=== PATIENT | female | born 1960 ===

== ENCOUNTER 2019-02-25 00:28 | Inpatient (IN) | payer OTHER ==
--- NOTE | 2019-02-24 12:28 | LEVENE H&P ---
DATE OF ADMISSION: February 25, 2019 IDENTIFICATION/CHIEF COMPLAINT The patient is a 58-year-old woman with a chief complaint of right knee pain. HISTORY OF PRESENT ILLNESS The patient has a long-standing history of knee arthritis, progressively painful and debilitating, refractory to conservative care. Surgery is indicated to relieve symptoms after failure of nonoperative measures. PAST MEDICAL HISTORY Hypertension, borderline diet controlled. PAST SURGICAL HISTORY 1. Cholecystectomy. 2. Hernia repair. ALLERGIES Erythromycin and Sudafed. CURRENT MEDICATIONS 1. Diovan/hydrochlorothiazide 1 p.o. q. day. 2. Effexor 1 p.o. q. day. 3. Trazodone 1 p.o. q. nightly. FAMILY HISTORY Notable for a father with heart attack. SOCIAL HISTORY Negative for tobacco and alcohol use. REVIEW OF SYSTEMS Negative. PHYSICAL EXAMINATION GENERAL: This is a healthy female. HEENT: Normocephalic, atraumatic. Extraocular muscles intact. NECK: Supple, non-tender. LUNGS: Clear to auscultation bilaterally. HEART: Regular rate and rhythm. ABDOMEN: Benign. ORTHOPEDIC EXAMINATION The right knee has an effusion present, crepitus is noted. She is stiff at end- range. Flexion and extension is good. Gross stability is good. End-range and extensor function is intact. Calf is nontender. Neurovascular function intact. RADIOGRAPHS Demonstrate end-stage knee arthritis. ASSESSMENT Right knee end-stage degenerative joint disease progressively painful and debilitating, refractory to conservative measures. PLAN The patient and I discussed the options again, including ongoing conservative management, which is safe and reasonable versus the option of knee replacement. She would like to go ahead and proceed with total knee arthroplasty. The nature of the procedure, the risks, benefits, the anticipated rehabilitative course were reviewed. Risks include but are not limited to , major medical or anesthetic complication, infection, neurovascular injury, blood transfusion, stiffness, scarring, fracture, tendon rupture, instability, implant loosening, migration or failure, persistent or recurrent pain or symptoms, need for additional surgery and other unforeseen. She understands and wishes to proceed. A signed permit is placed in the chart. No guarantees are given or implied. [facility]ITAL[facility]
[2019-02-24 15:27] LABS: INR 0.98
[~2019-02-25] VITALS: Ht 170.2 cm; Wt 76.0 kg
[2019-02-25] VITALS (8 sets, daily range): BP systolic 98–129; BP diastolic 61–84
[~2019-02-25 00:28] MED LIST: TRAZ50TA52 PO; VALS1TAB4 PO; VENL150C3 PO
[2019-02-25] MEDS: NORMOSOL R SOLN(*) 1000 ML BAG 1,000 ML IV PRN ×2 (07:08→10:08)
[2019-02-25] MEDS: LIDOCAINE/SOD BICARB 8.4% SYR ID ONE ×2 (07:09→07:40)
[2019-02-25] MEDS ORDERED: fentaNYL CITR 100 MCG/2 ML AMP ONE (07:49)
[2019-02-25] MEDS ORDERED: DEXAMETHASONE SOD 4 MG/ML VIAL ONE (07:49)
[2019-02-25] MEDS ORDERED: ONDANSETRON 4 MG/2 ML VIAL ONE (07:49)
[2019-02-25] MEDS ORDERED: PROPOFOL EMUL(*) 10MG/ML 20 ML 20 ML ONE (07:49)
[2019-02-25] MEDS ORDERED: LIDOCAINE MPF 1% 5 ML VIAL ONE (07:49)
[2019-02-25] MEDS ORDERED: KETAMINE HCL-NS 50 MG/5 ML SYR ONE (07:51)
[2019-02-25] MEDS ORDERED: PREGABALIN 150 MG CAPSULE PO ONE (08:45)
[2019-02-25] MEDS ORDERED: ACETAMINOPHEN 500 MG TAB PO ONE (08:45)
[2019-02-25] MEDS ORDERED: FAMOTIDINE 20 MG TAB PO ONE (08:45)
[2019-02-25] MEDS ORDERED: ROPIVACAINE/EPI/CLONIDINE/KET 50 ML SYRINGE INJ ONE (08:45)
[2019-02-25] MEDS ORDERED: TRANEXAMIC AC 1000 MG/10ML SDV 1,000 MG in DEXTROSE 5% 50 ML BAG 50 ML IV ONE (08:45)
[2019-02-25] MEDS ORDERED: CELECOXIB 200 MG CAP PO ONE (08:45)
[2019-02-25] MEDS ORDERED: MIDAZOLAM 2 MG/2 ML VIAL IVP PRN (08:45)
[2019-02-25] MEDS ORDERED: ceFAZolin(*) 2GM/D5W 50ML 50 ML IVPB ONE (08:45)
[2019-02-25] MEDS ORDERED: VANCOMYCIN 1 GM VIAL ONE (09:50)
[2019-02-25] MEDS ORDERED: ePHEDrine 25 MG/5 ML DISP.SYR IVP ONE ×2 (10:33→13:25)
[2019-02-25] MEDS ORDERED: NS 0.9% IRRIGATION 1000ML PLCT IR ONE (10:56)
[2019-02-25] MEDS ORDERED: LACTATED RINGER 3000 ML BAG IR ONE (10:56)
[2019-02-25] MEDS ORDERED: WATER STERILE FOR IRRIG 1000ML IR ONE (10:57)
--- NOTE | 2019-02-25 12:46 | OPERATIVE REPORT 1 ---
EVENT DATE: February 25, 2019 SURGEON: Troy Sultana MD ANESTHESIOLOGIST: Kamran Melendrez MD ANESTHESIA: General plus spinal. ORDERLIES TEACHER: DEMARIO Lei, PUBLIC RELATIONS COORDINATOR PREOPERATIVE DIAGNOSIS Right knee degenerative joint disease. POSTOPERATIVE DIAGNOSIS Right knee degenerative joint disease. PROCEDURE PERFORMED Right total knee arthroplasty. ESTIMATED BLOOD LOSS Minimal. DRAINS None. SPECIMENS None. COMPLICATIONS None apparent. TOURNIQUET TIME 46 minutes. IMPLANTS USED [email or web address] system with a 4 right PS femur, a 5 standard tibial baseplate, a 33 mm universal symmetric all polyethylene patella button and 11 mm PS tibial tray, polyethylene X3. INDICATIONS Svitlana is a 51-year-old woman with intractable pain and disability related to end-stage knee arthritis. Surgery is indicated to relieve symptoms after failure of nonoperative measures. DESCRIPTION OF PROCEDURE The patient was taken to the operating room and placed supine on the operating table. Spinal block was administered by the anesthesiologist. General anesthesia was induced. Antibiotics and TXA were administered IV. The right lower extremity was prepped and draped in the usual sterile fashion for knee arthroplasty. The limb was exsanguinated with an Esmarch bandage. The tourniquet was inflated to 275 mmHg. A midline longitudinal incision was made and carried down through the skin and subcutaneous tissue to the extensor mechanism. A full-thickness flap was developed far enough medially to allow medial parapatellar arthrotomy to be performed. The patella was everted. The knee was brought into a flexed position. The fat pad, anterior horns of the menisci and cruciate ligaments were debrided. Subperiosteal capsular release was performed circumferentially around the upper tibial plateau. Step-drill was used to enter the distal femur. A 10-inch long alignment guide was used to engage the isthmus. Cut was set for 6 degrees valgus relative to anatomic axis. A 10 mm resection block was applied and pinned. Cut was made with an oscillating saw. The AP sizing guide was applied to the distal femoral cut and positioned for 3 degrees of external rotation relative to the posterior condyles. The size 4 was optimal without risk of notching. The four-in-one cutting block was applied. Anterior, posterior, posterior chamfer and anterior chamfer cuts were made respectively. A PS block was applied and centered mediolateral and the bone was resected from the box. The trial femur has nice tqib-zx-rpug fit. Attention was turned to tibial preparation. The extramedullary guide was applied and positioned for varus, valgus, posterior slope and rotation. This was set to resect 2 mm from the relatively deficient lateral tibial plateau. It was dropped down another couple of millimeters to assure an adequate cut. The block was pinned, extramedullary alignment check was made and the cut was made with an oscillating saw. After osteophyte removal, no additional soft tissue release was required to achieve balanced and symmetric gaps. Size 5 tibial baseplate provides optimal bony coverage without overhang. This was selected and inserted along with trial liner and trial in the femur. The knee was brought into extension. Patella was taken from starting thickness of 23 mm through residual of 14 with patellar clamp and oscillating saw. The 33 provides optimal bony coverage without soft tissue overhang. Lug holes were drilled. The patella tracts nicely with a no-touch technique. Final tibial preparation consisted of assuring appropriate rotational and translational position of the component. The box was reamed and the fin was punched. Surfaces were lavaged. A mix of polymethylmethacrylate was made and the components were cemented in a single stage. Once the cement was fully polymerized, the tourniquet was deflated and hemostasis was assured. All loose debris was washed from the wound. The 11 PS tibial tray trial fills up the gap ideally, allowing the knee to drop to full extension without hyperextension, providing optimal stability and soft tissue tension. The tray was lavaged and dried and the actual liner was locked into baseplate. Joints was reduced. Arthrotomy was closed in flexion with #2 Ethibond, subcutaneous with 3-0 Vicryl and the skin with ZipLine closure. Xeroform was applied followed by a dry, sterile dressing and a compression wrap. The patient was awakened from anesthesia and taken to the recovery room in stable condition, having tolerated the procedure well. Plan is for standard TKA rehab protocol. [facility]
[2019-02-25] MEDS ORDERED: diphenhydrAMINE 50 MG/ML VIAL IVP PRN (13:05)
[2019-02-25] MEDS ORDERED: MAGNESIUM HYDROXIDE* 30ML UDCP PO PRN (13:05)
[2019-02-25] MEDS ORDERED: DIAZEPAM 5 MG TAB PO PRN (13:05)
[2019-02-25] MEDS ORDERED: ACETAMINOPHEN 325 MG TAB PO PRN (13:05)
[2019-02-25] MEDS ORDERED: diphenhydrAMINE 25 MG CAP PO PRN (13:05)
[2019-02-25] MEDS ORDERED: FLUSH 10 ML SYR IVP PRN (13:05)
[2019-02-25] MEDS ORDERED: ZOLPIDEM TARTRATE 5 MG TAB PO PRN (13:05)
[2019-02-25] MEDS ORDERED: BISACODYL 10 MG SUPP PR PRN (13:05)
[2019-02-25] MEDS ORDERED: PROMETHAZINE 25 MG/ML 1 ML AMP IVP PRN (13:05)
[2019-02-25] MEDS ORDERED: NORMOSOL R SOLN(*) 1000 ML BAG 1,000 ML IV PRN (13:05)
[2019-02-25] MEDS ORDERED: BENZOCAINE/MENTHOL 1 EACH LOZG PO PRN (13:05)
[2019-02-25] MEDS ORDERED: GLYCOPYRROLATE 0.2MG/ML 1 ML INJ ONE (13:31)
--- NOTE | 2019-02-25 14:24 | Hospitalist Consultation ---
History of Present Illness Requesting Physician Dr. Sultana Reason for Consult Medical Management Chief Complaint s/p right knee replacement History of Present Illness She was admitted s/p right knee replacement. It is reported the surgery went well and without complication. History Problems: (1) Hypertension Status: Chronic (2) Depression Status: Chronic (3) Hx pulmonary embolism Status: Chronic Home Meds Reported Medications Trazodone Hcl (TRAZODONE HCL) 50 Mg Tablet, 50 MG PO QHS 02/18/19 Valsartan/Hydrochlorothiazide (VALSARTAN-HCTZ 160-12.5 MG TAB) 1 Each Tablet, 1 EACH PO DAILY 02/18/19 Venlafaxine Hcl (VENLAFAXINE HCL ER) 150 Mg Cap.er.24h, 150 MG PO QDAY 02/18/19 Allergies: Coded Allergies: erythromycin base (Verified Allergy, Intermediate, VOMITING, 02/18/19) pseudoephedrine (Verified Allergy, Unknown, INCREASED BLOOD PRESSURE, 02/18/19) Patient History: FH: [facility] (my[facility] infarction) FATHER, Hx Smoking: No Smoking Status: Never Smoker Caffeine Intake: Soda Caffeine/Cups Per Day: 2 SODAS DAILY Hx Alcohol Use: Yes Hx Substance Use Disorder: No Social Drug Use: Never History of IV Drug Use: No Review of Systems All Systems Reviewed/Normal: Yes, Except as Noted Exam Vital Signs Vital Signs Date Time Temp Pulse Resp B/P (MAP) Pulse Ox O2 Delivery O2 Flow Rate FiO2 02/25/19 13:35 93 Nasal Cannula 2.0 02/25/19 13:18 97.9 108 12 123/82 (96) General Appearance: Alert, Awake, No Acute Distress, Afebrile Neuro: No Gross deficits Cardiovascular: Regular Rate and Rhythm Respiratory: No Respiratory Distress, Clear to Auscultation GI: Abd Soft and Non-Tender Psych: Alert & Oriented X3, Appropriate Mood & Affect Assessment and Plan Problems: (1) S/P knee replacement Status: Acute Assessment & Plan: Followed by Dr. Sultana. She will be placed on Xarelto for DVT prophylaxis secondary to history of PE. (2) Hypertension Status: Chronic Assessment & Plan: Continue chronic Valsartan/ HCTZ with hold parameters. (3) Depression Status: Chronic Assessment & Plan: Continue chronic Venlafaxine. (4) Hx pulmonary embolism Status: Chronic Assessment & Plan: After fall and starting control in . Venous Thromboembolism Antithrombotics Is Pt On Any Antithrombotics?: No DILIP MIGUEL [employer] Feb 25, 2019 14:24
--- NOTE | 2019-02-25 14:51 | NUR ---
This Physical Therapist or Nitro Worker was present for the entire physical therapy session directing the services, making the skilled judgement, and was not engaged in treating another patient or doing another task at the same time as the treatment session. Addendum: 02/25/19 at 1621 by ADRIANA GARCIA PT Amended: Links added.
--- NOTE | 2019-02-25 14:51 | NUR ---
Physical Therapy Impression PT eval complete. Pt able to tolerate ambulation well, without any additional complaints. Therex performed in supine: ankle pumps, quad sets, and glut sets. Pt performed bed mobility with SBA. Pt performed sit<>stand xfers from EOB and toilet, with CGAx1 and use of RW. Pt ambulated 20 ft, between EOB and bathroom. Pt required CGAx1, RW, and use of 2L of O2. Pt ambulated with an antalgic gait and step-to pattern. Following treatment, Pt left on CPM at 0-30 degrees. Education provided on changing settings, will require follow-up. Pt left in bed with CPM on, call light in reach, and family present. Pt would benefit from further skilled PT care to ensure functional ambulation and safe stair negotiation. Rec OP PT at discharge. Physical Therapy Goals 1. Lucinda bed mobility 2. Lucinda transfers 3. Lucinda ambulation of 150 ft with RW use. 4. Lucinda ability to ascend/descend 2 stairs 5. Independent use of CPM machine Patient's Goals
--- NOTE | 2019-02-25 15:40 | RADIOLOGY IMAGING REPORT ---
FACILITY: [facility] - [place] PATIENT NAME: Svitlana Valdez : 1960 MR: [id number] V: [id number] EXAM DATE: ORDERING PHYSICIAN: KIMBERLY PRIEST TECHNOLOGIST: Location: [facility] - [place] Patient: Svitlana Valdez : 1960 Visit/Account:[id number] Date of Sevice: 02/25/2019 Study: KNEE LIMITED RIGHT Indication: Status post knee replacement Comparison study: None available Findings: AP and lateral views of the right knee demonstrates that the patient is status post total k nee replacement. There are postoperative changes present. The appearance of the metallic portions of the prosthesis is unremarkable. There is no evidence of a cute bony abnormality. IMPRESSION: Status post right total knee replacement. Report Dictated By: Pipo Mast at 02/25/2019 3:31 PM Report E-Signed By: Pipo Mast at 02/25/2019 3:33 PM WSN:[email or web address]
[2019-02-25] MEDS: CELECOXIB 200 MG CAP PO SCH (17:21)
[2019-02-25] MEDS: ceFAZolin(*) 1 GM VIAL 1 GM in NS(*) 0.9% 100 ML MINI-BAG 100 ML IVPB SCH (17:22)
[2019-02-25] MEDS: traZODone HCL 50 MG TAB PO SCH (21:11)
[2019-02-26] MEDS: ceFAZolin(*) 1 GM VIAL 1 GM in NS(*) 0.9% 100 ML MINI-BAG 100 ML IVPB SCH ×2 (02:24→09:57)
[2019-02-26 03:15] VITALS: BP 129/78
[2019-02-26 06:40] VITALS: BP 123/78
[2019-02-26 08:29] VITALS: Ht 170.2 cm; Wt 76.0 kg
[2019-02-26] MEDS: RIVAROXABAN 10 MG TAB PO SCH (08:31)
[2019-02-26] MEDS: HYDROCHLOROTHIAZIDE PO SCH (08:31)
[2019-02-26] MEDS: VENLAFAXINE HCL 150 MG CAP.ER.24H PO SCH (08:31)
[2019-02-26] MEDS: VALSARTAN PO SCH (08:31)
[2019-02-26] MEDS: CELECOXIB 200 MG CAP PO SCH ×2 (08:31→16:30)
--- NOTE | 2019-02-26 09:21 | NUR ---
Physical Therapy Impression Patient presents in room in bed and is agreeable to therapy and ready to be d/c. Patient shown how to change setting on CPM and shown protocol. Patient demonstrates good understanding and does not have questions. Patient is SBA with bed mobility and transfers. Patient instructed in gait training with FWW ~250 feet with cuing for step through gait as she initially had step to gait and for increased weight bearing on right LE. Patient needed to be cued to slide walker instead of picking it up as she was not familiar with FWW. Patient at end of ambulation prior to platform step patient had increased dizziness/lightheadedness and needed to go back to bed. Patients pulse ox dropped to low 80's and was sporadic. Patient placed on half a liter of oxygen and it came back up to 94% but then would drop to 86%. Nursing was notified of this. Checked patients BP and it was 96/65. Patient then performed supine exercises including ankle pumps, glute and quad sets, heels slides, and SAQ all x 5 reps. Patient will be seen this afternoon to perform platform step and for ambulation and will discuss d/c with nursing this afternoon after therapy session. Physical Therapy Goals 1. Lucinda bed mobility 2. Lucinda transfers 3. Lucinda ambulation of 150 ft with RW use. 4. Lucinda ability to ascend/descend 2 stairs 5. Independent use of CPM machine Patient's Goals
--- NOTE | 2019-02-26 09:37 | Hospitalist Progress Note ---
Subjective Progress Notes Subjective She was admitted s/p knee replacement. She has no complaints this morning. She had no acute events overnight. Patient Complains of: Cardiovascular: No: Chest Pain Respiratory: No: Shortness of Breath Physical Exam Vital Signs Date Time Temp Pulse Resp B/P (MAP) Pulse Ox O2 Delivery O2 Flow Rate FiO2 02/26/19 08:35 91 Room Air 02/26/19 06:40 98.3 85 18 123/78 (93) 02/26/19 03:15 1.0 Intake and Output 02/26/19 07:01 Intake Total 4790 ml Balance 4790 ml Intake Oral 2240 ml IV Total 2550 ml # Voids 5 General Appearance: Alert, Awake, No Acute Distress, Afebrile Neuro: No Gross deficits Cardiovascular: Regular Rate and Rhythm Respiratory: No Respiratory Distress, Clear to Auscultation GI: Soft and Non-Tender Psych: Alert & Oriented X3, Appropriate Mood & Affect Assessment and Plan Problems: (1) S/P knee replacement Status: Acute Assessment & Plan: Followed by Dr. Sultana. She will be placed on Xarelto for DVT prophylaxis secondary to history of PE. (2) Hypertension Status: Chronic Assessment & Plan: Continue chronic Valsartan/ HCTZ with hold parameters. (3) Depression Status: Chronic Assessment & Plan: Continue chronic Venlafaxine. (4) Hx pulmonary embolism Status: Chronic Assessment & Plan: After fall and starting control in . Exam Sepsis Risk: No Definite Risk DILIP MIGUEL [facility] Feb 26, 2019 09:37
[2019-02-26 10:20] VITALS: BP 92/64
[2019-02-26] MEDS: APAP/HYDROCODONE 325/7.5 TAB PO PRN ×2 (12:58→19:33)
--- NOTE | 2019-02-26 13:23 | NUR ---
Physical Therapy Impression Patient presents in room and is agreeable to therapy. Reports she is not having dizziness and is feeling much better. Patient was SBA for bed mobility and transfers. Patient instructed in gait training with FWW ~ 225 feet SBA and cuing for weight shift and to loosen regional sales director on handles of walker. Patient ascended and descended platform step with FWW x 2 reps with cuing for sequencing with CGA. Patients friend instructed to hold onto patient when going up steps to get into home. Patient did not have dizziness or lightheadedness with afternoon treatment. Patient left in room with call light CPM 0 to 35 with IP and rails up no oxygen as she did not have it on when I entered her room. Physical Therapy Goals 1. Lucinda bed mobility 2. Lucinda transfers 3. Lucinda ambulation of 150 ft with RW use. 4. Lucinda ability to ascend/descend 2 stairs 5. Independent use of CPM machine Patient's Goals
[2019-02-26 15:00] VITALS: BP 104/79
[2019-02-26 18:45] VITALS: BP 111/75
[2019-02-26] MEDS: traZODone HCL 50 MG TAB PO SCH (20:18)
[2019-02-27 00:39] VITALS: BP 100/62
[2019-02-27] MEDS: APAP/HYDROCODONE 325/7.5 TAB PO PRN ×2 (02:30→08:21)
[2019-02-27 02:32] VITALS: BP 119/65
[2019-02-27 06:58] VITALS: BP 117/75
[2019-02-27] MEDS: RIVAROXABAN 10 MG TAB PO SCH (08:21)
[2019-02-27] MEDS: VALSARTAN PO SCH (08:22)
[2019-02-27] MEDS: CELECOXIB 200 MG CAP PO SCH (08:22)
[2019-02-27] MEDS: VENLAFAXINE HCL 150 MG CAP.ER.24H PO SCH (08:22)
[2019-02-27] MEDS: HYDROCHLOROTHIAZIDE PO SCH (08:22)
--- NOTE | 2019-02-27 08:28 | NUR ---
Physical Therapy Impression Patient presents in room and is agreeable to therapy complains of 2/10 with pain. Patient instructed in gait training with FWW ~250 feet with SBA and cuing for weight shift onto surgical leg and to loosen her magnetic resonance imaging coordinator on her walker and to slow down when turning 180 degrees. Patient ascended and descended 1 platform step with SBA with step to pattern using FWW. Patient educated on car transfer. Patient demonstrated good understanding of exercises and CPM. Patient has met all goals and is ready to d/c to OP PT. Patient was left in bed with all needs met. Physical Therapy Goals 1. Lucinda bed mobility 2. Lucinda transfers 3. Lucinda ambulation of 150 ft with RW use. 4. Lucinda ability to ascend/descend 2 stairs 5. Independent use of CPM machine Patient's Goals
[2019-02-27] MEDS ORDERED: RIV10 PO (09:11)
--- NOTE | 2019-02-27 10:08 | Hospitalist Progress Note ---
Subjective Progress Notes Subjective She was admitted s/p knee replacement. She had no acute events overnight. Patient Complains of: Cardiovascular: No: Chest Pain Respiratory: No: Shortness of Breath Physical Exam Vital Signs Date Time Temp Pulse Resp B/P (MAP) Pulse Ox O2 Delivery O2 Flow Rate FiO2 02/27/19 08:55 99 02/27/19 07:46 Nasal Cannula 0.5 02/27/19 06:58 98.0 93 16 117/75 (89) Intake and Output 02/27/19 07:01 Intake Total 1200 ml Balance 1200 ml Intake Oral 1100 ml IV Total 100 ml # Voids 2 General Appearance: Alert, Awake, No Acute Distress, Afebrile Neuro: No Gross deficits Cardiovascular: Regular Rate and Rhythm Respiratory: No Respiratory Distress, Clear to Auscultation GI: Soft and Non-Tender Psych: Alert & Oriented X3, Appropriate Mood & Affect Assessment and Plan Problems: (1) S/P knee replacement Status: Acute Assessment & Plan: Followed by Dr. Sultana. She will be placed on Xarelto for DVT prophylaxis secondary to history of PE. (2) Hypertension Status: Chronic Assessment & Plan: Continue chronic Valsartan/ HCTZ with hold parameters. (3) Depression Status: Chronic Assessment & Plan: Continue chronic Venlafaxine. (4) Hx pulmonary embolism Status: Chronic Assessment & Plan: After fall and starting control in . Exam Sepsis Risk: No Definite Risk Problem Qualifiers (1) Hypertension: Hypertension type: essential hypertension Qualified Codes: I10 - Essential (primary) hypertension DILIP MIGUEL [facility] Feb 27, 2019 10:08
== END 2019-02-27 10:45 | disposition home or self-care (01) | DRG 470 ==
LOC: OR 00:28 → EDBD 11:30 → MED 13:20
PROVIDERS: ADMIT Orthopaedic Surgery; ATTEND Orthopaedic Surgery
PROC: 0SRC0J9 Replacement of Right Knee Joint with Synthetic Substitute, Cemented, Open Approach (ICD-10-PCS; principal; 2019-02-25 10:07)
DX: M17.11 Unilateral primary osteoarthritis, right knee (principal); I10 Essential (primary) hypertension; F32.9 Major depressive disorder, single episode, unspecified; Z79.899 Other long term (current) drug therapy; Z88.1 Allergy status to other antibiotic agents; Z88.8 Allergy status to other drugs, medicaments and biological substances; Z86.711 Personal history of pulmonary embolism
CPT/HCPCS: 36415; 85610; 86850; 86900; 86901; 97161; C1713; C1776; J0690; J1100; J2001; J2250; J2405; J2704; J3010; J3370; J3490; J7060